=== PATIENT | male | born 1945 | race Hispanic/Latino ===

== ENCOUNTER → 2018-01-24 | Outpatient (CLI) | payer OTHER | LOC: SHCH 09:12 | PROVIDERS: ATTEND Internal Medicine Cardiovascular Disease | DX: I65.23 Occlusion and stenosis of bilateral carotid arteries (principal) | CPT/HCPCS: 93306; 93880 ==

== ENCOUNTER → 2019-10-03 | Outpatient (CLI) | payer OTHER ==
[~2019-10-03] VITALS: Ht 180.3 cm; Wt 56.7 kg
[~2019-10-03] MED LIST: REGADENOSON 0.4 MG/5 ML PF SYG IVP SCH
== END | disposition home or self-care (01) ==
LOC: SHCH 08:13
PROVIDERS: ATTEND Internal Medicine Cardiovascular Disease
DX: I25.89 Other forms of chronic ischemic heart disease (principal); I10 Essential (primary) hypertension
CPT/HCPCS: 78452; 93017; 96374; A9500 ×2; J2785

== ENCOUNTER → 2019-10-12 | Outpatient (CLI) | payer OTHER | END | disposition home or self-care (01) | LOC: SHCH 08:38 | PROVIDERS: ATTEND Internal Medicine Cardiovascular Disease | DX: I71.4 Abdominal aortic aneurysm, without rupture (principal); I65.23 Occlusion and stenosis of bilateral carotid arteries; R09.89 Other specified symptoms and signs involving the circulatory and respiratory systems | CPT/HCPCS: 93880; 93978 ==

== ENCOUNTER 2019-11-24 05:51 | Day surgery (SDC) | payer OTHER ==
[2019-11-22 13:40] LABS: BASOPHILS % (AUTO) 0.6 % (0.0-5.0); EOSINOPHILS % (AUTO) 1.1 % (0.0-8.0); HEMATOCRIT 36.2 % (42-54); LYMPHOCYTES % (AUTO) 15.9 % (21.0-51.0); MEAN CORPUSCULAR HEMOGLOBIN 34.9 pg (27.0-33.0); MEAN CORPUSCULAR HGB CONC 32.3 g/dL (32.0-36.0); MEAN CORPUSCULAR VOLUME 108.1 fL (79-99); MONOCYTES % (AUTO) 7.5 % (3.0-13.0); NEUTROPHILS % (AUTO) 74.6 % (40.0-77.0); PLATELET COUNT (AUTO) 205 K/uL (130-400); RED BLOOD CELL COUNT(AUTO) 3.35 MIL/uL (4.50-6.20); RED CELL DISTRIBUTION WIDTH 14.2 % (11.0-15.5); WHITE BLOOD COUNT (AUTO) 6.4 K/uL (4.8-10.8)
[2019-11-22 13:42] VITALS: BP 140/78
[2019-11-22 13:48] LABS: CREATININE 0.9 mg/dL (0.5-1.5); POTASSIUM 4.7 mmol/L (3.5-5.1)
[2019-11-22 13:53] LABS: INR 1.05 (0.85-1.15); PARTIAL THROMBOPLASTIN TIME 31.7 SEC (26.3-35.5)
[2019-11-22 14:01] LABS: APPEARANCE,URINE Clear (CLEAR); BILIRUBIN,URINE Moderate (NEGATIVE); COLOR,URINE Dark Yellow (YELLOW); GLUCOSE, URINE (UA) Negative (NEGATIVE); KETONES,URINE Negative (NEGATIVE); LEUKOCYTE ESTERASE ,URINE Trace (NEGATIVE); NITRATE,URINE Negative (NEGATIVE); OCCULT BLOOD,URINE Negative (NEGATIVE); PH,URINE 5.5 (5.0-8.0); PROTEIN,URINE POS 1+ mg/dL (NEGATIVE)
[2019-11-22 14:05] LABS: BACTERIA,URINE Rare /HPF (None Seen); RBC,URINE 0-1 /HPF (0-1); SQUAMOUS EPITHELIAL CELL,UR Rare /HPF (0-2); WBC,URINE 0-1 /HPF (0-1)
[~2019-11-24] VITALS: Ht 175.3 cm; Wt 55.5 kg
[2019-11-24] VITALS (11 sets, daily range): BP systolic 108–185; BP diastolic 61–82
[~2019-11-24 05:51] MED LIST changes: +AMIT10TA6 PO; +METO50TA18 PO; +MULT-1289 PO; -REGADENOSON 0.4 MG/5 ML PF SYG IVP SCH; +SIMV-46 PO; +SODIUM CHLORIDE 0.9% 500ML 500 ML IV SCH
--- NOTE | 2019-11-24 06:15 | NUR ---
PRE-PROCEDURE RECEIVED FROM HOME TO DAY 15 FOR SCHEDULED LHC. PT IS ALONE. PER PT HE WILL TAKE TAXI HOME, BUT SON LIVES WITH HIM; BANDAR VELAZQUEZ. AWARE. AWAKE IN NO ACUTE DISTRESS. DENIES CHEST PAIN OR SOA. CONNECTED TO CONTINUOUS CARDIOPULMONARY MONITORING. HX: PANCREATIC CANCER, FATTY NODULES, PAC OF RIGHT CHEST WALL FOR PREVIOUS CHEMO ADMINISTRATION, 12F DRAIN TO PANCREATIC AREA CLAMPED, SMOKER. SIDE RAILS UP X2, BED IN LOWEST POSITION, AND CALL LIGHT W/IN REACH. Addendum: 11/24/19 at 0727 by ERNESTO MENDENHALL RN RN SCLERA YELLOW.
[2019-11-24] MEDS ORDERED: SODIUM CHLORIDE 0.9% 1000ML 1,000 ML IV ONE (06:22)
[2019-11-24] MEDS ORDERED: NITROGLYCERIN 1 MG/VIAL VIAL IV ONE (07:09)
[2019-11-24] MEDS ORDERED: HEPARIN SODIUM 1000UNIT/ML 10ML VIAL ONE (07:09)
[2019-11-24] MEDS ORDERED: LIDOCAINE HCL 2% 20ML ONE (07:10)
[2019-11-24] MEDS ORDERED: MEPERIDINE-PF 25 MG/ML SYG ONE ×2 (07:10→07:53)
[2019-11-24] MEDS ORDERED: IOHEXOL 350 MG/ML 100ML INFUS..BTL IV ONE (07:10)
[2019-11-24] MEDS ORDERED: IOHEXOL-350 50ML VIAL IV ONE (07:10)
[2019-11-24] MEDS ORDERED: MIDAZOLAM HCL 1 MG/ML 2ML VIAL ONE ×2 (07:10→07:53)
[2019-11-24] MEDS ORDERED: SODIUM BICARB 50MEQ 50ML VIAL ONE (07:11)
--- NOTE | 2019-11-24 07:15 | NUR ---
PROCEDURE TRANSFERRED TO AUTO BRAKE TECHNICIAN VIA BED BY BRIE GUZMAN RN.
[2019-11-24] MEDS ORDERED: ASPIRIN 325MG EC TAB 325 MG TABLET.DR PO ONE (07:16)
[2019-11-24] MEDS ORDERED: SODIUM CHLORIDE 0.9% 1000ML 1,000 ML IV SCH (08:30)
--- NOTE | 2019-11-24 09:00 | NUR ---
POST-PROCEDURE RECEIVED FROM HOME HEALTH TRAVEL OT VIA BED BY BRIE GUZMAN RN S/P [facility]. AWAKE IN NO ACUTE DISTRESS. DENIES PAIN. CONNECTED TO CONTINUOUS CARDIOPULMONARY MONITORING. SIDE RAILS UP X2, BED IN LOWEST POSITION, AND CALL LIGHT W/IN REACH. EDUCATED ON IMPORTANCE OF KEEPING RIGHT LEG STRAIGHT AND HEAD FLAT. PT VERBALIZED UNDERSTANDING. CATH SITE W/O SIGNS OF BLEEDING. SITE W/ PERCLOSE DRESSING CLEAN, DRY, AND INTACT; SITE SOFT, NON-TENDER.
--- NOTE | 2019-11-24 12:30 | NUR ---
DIET ATE 100% OF LUNCH
--- NOTE | 2019-11-24 13:00 | NUR ---
ACTIVITY UP TO CHAIR. GAIT STEADY. CATH SITE WITHOUT SIGNS OF BLEEDING; PERCLOSE DRESSING CLEAN, DRY, AND INTACT; SITE SOFT, NON-TENDER.
--- NOTE | 2019-11-24 13:18 | NUR ---
HTN BP 185/78. BANDAR OLSON NOTIFIED. ORDER RECEIVED FOR HYDRALAZINE 10MG IVP ONCE.
[2019-11-24] MEDS ORDERED: HYDRALAZINE HCL 20 MG/ML VIAL ONE (13:19)
[2019-11-24] MEDS ORDERED: HYDRALAZINE HCL 20 MG/ML VIAL IV SCH (13:30)
--- NOTE | 2019-11-24 13:45 | NUR ---
F/U HTN B/P 161/69.
--- NOTE | 2019-11-24 13:48 | NUR ---
DISCHARGE INSTRUCTIONS DAY PT DISCHARGE INSTRUCTION SHEET, MED REC, AND PT SUMMARY REVIEWED WITH PT. EDUCATED ON NO HEAVY LIFTING MORE THAN 5LBS FOR 5 DAYS, NO DRIVING X24 HRS, KEEP DRESSING CLEAN, DRY, AND INTACT X24. EDUCATED FOR ANY SIGNS OF BLEEDING TO CATH SITE APPLY DIRECT FIRM PRESSURE, CALL 911, AND RETURN TO ER. PT VERBALIZED UNDERSTANDING. OPPORTUNITY GIVEN TO ASK QUESTION. NO QUESTIONS OR CONCERNS VOICED.
--- NOTE | 2019-11-24 14:05 | NUR ---
PANCREATIC DRAIN WHEN PT DRESSING NOTICED SUTURES LOOSE FROM PANCREATIC DRAIN. INFORMED PT I WOULD CALL DR. REICH, BUT PT REFUSED. STATES "ITS FINE. I'LL JUST GO HOME. IF I FEEL BAD I'LL LET HIM KNOW." Addendum: 11/24/19 at 1506 by ERNESTO MENDENHALL RN RN PT INSTRUCTED TO F/U PCP ON WEDNESDAY TO CHECK THE DRAIN. PT VERBALIZED UNDERSTANDING.
--- NOTE | 2019-11-24 14:10 | NUR ---
DISCHARGE DISCHARGED VIA W/C. AWAKE IN NO ACUTE DISTRESS. DENIES PAIN. Addendum: 11/24/19 at 1427 by ERNESTO MENDENHALL RN RN DISCHARGED W/ BRIEN PTS SISTER.
== END 2019-11-24 14:15 | disposition home or self-care (01) ==
LOC: DAH 05:51
PROVIDERS: ATTEND Internal Medicine Cardiovascular Disease
DX: I25.10 Atherosclerotic heart disease of native coronary artery without angina pectoris (principal); I70.213 Atherosclerosis of native arteries of extremities with intermittent claudication, bilateral legs; F17.210 Nicotine dependence, cigarettes, uncomplicated; I10 Essential (primary) hypertension; E78.5 Hyperlipidemia, unspecified; E11.9 Type 2 diabetes mellitus without complications; K21.9 Gastro-esophageal reflux disease without esophagitis; Z79.82 Long term (current) use of aspirin; Z85.07 Personal history of malignant neoplasm of pancreas; Z88.8 Allergy status to other drugs, medicaments and biological substances; Z79.899 Other long term (current) drug therapy; Z98.890 Other specified postprocedural states
CPT/HCPCS: 36415; 71045; 75716; 80048; 81001; 82948 ×2; 85025; 85610; 85730; 93005; 93458; A4215; A4216; A4221; A4222; A4223 ×3; A4606; A4663; C1760; C1894 ×2; J0360; J1644; J2175; J2250; J3490 ×3; J7030; Q9965; Q9967 ×2; 36200; 99156; 99157